=== PATIENT | female | born 1995 | race Caucasian/White ===

== ENCOUNTER 2017-01-27 17:00 | Emergency (ER) | payer SELFPAY ==
--- NOTE | 2017-01-27 17:27 | EDM.PDOC ---
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 5wks gestation with LMP of 12/19/16 who arrives from home by POV with c/o pelvic cramping, and vaginal discharge. Admits to some vaginal spotting yesterday, but not currently. Pt states her LMP of 12/19/16 was unusual for her in that it was very light and only lasted 2 days. Her period in October was her last normal period and began on 11/17/16. Denies dysuria, fever, chills, N/V, diarrhea, constipation, or any other symptoms. (Guy Jiang) Past Medical History - Past Health History Medical/Surgical History: Denies Medical/Surgical History <Guy Jiang - Last Filed: 01/27/17 18:54> Social & Family History - Family History OBGYN: Reports: Recurrent Spontaneous (mother x4) - Tobacco Use Smoking Status *Q: Never Smoker - Caffeine Use Caffeine Use: Reports: None - Alcohol Use Alcohol Use History: No - Recreational Drug Use Recreational Drug Use: No - Sexual History Sexual History: Reports: Sexually Active - Living Situation & Occupation Living situation: Reports: , with Spouse <Guy Jiang - Last Filed: 01/27/17 18:54> ED ROS GENERAL - Review of Systems Review Of Systems: ROS reveals no pertinent complaints other than HPI. <Guy Jiang - Last Filed: 01/27/17 18:54> ED EXAM - Physical Exam Exam: See Below Exam Limited By: No Limitations General Appearance: Alert, WD/WN, No Apparent Distress Throat/Mouth: Normal Inspection Head: Atraumatic, Normocephalic Neck: Normal Inspection Respiratory/Chest: No Respiratory Distress, Lungs Clear, Normal Breath Sounds, No Accessory Muscle Use, Chest Non-Tender Cardiovascular: Regular Rate, Rhythm GI/Abdominal Exam: Normal Bowel Sounds, Soft, Non-Tender, No Organomegaly, No Distention, No Abnormal Bruit, No Mass, Pelvis Stable Back Exam: Normal Inspection. No: CVA Tenderness (L), CVA Tenderness (R) Extremities: Normal Inspection, Normal Range of Motion, Non-Tender, Normal Capillary Refill, No Pedal Edema Neurological: Alert, Oriented, CN II-XII Intact, Normal Cognition, Normal Gait, No Motor/Sensory Deficits Psychiatric: Normal Affect, Normal Mood Skin Exam: Warm, Dry, Intact, Normal Color, No Rash <Guy Jiang - Last Filed: 01/27/17 18:54> Course <Guy Jiang - Last Filed: 01/27/17 18:54> <Frandy Hughes - Last Filed: 01/27/17 20:34> - Vital Signs Last Recorded V/S: Last Vital Signs Temp 36.4 C 01/27/17 17:27 Pulse 89 01/27/17 17:27 Resp 16 01/27/17 17:27 BP 108/57 L 01/27/17 17:27 Pulse Ox 100 01/27/17 17:27 - Orders/Labs/Meds Orders: Active Orders 24 hr Category Date Time Status CHLAMYDIA TRACHOMATIS/GC AMPLF Routine Lab 01/27/17 17:35 Received Labs: Laboratory Tests 01/27/17 01/27/17 01/27/17 Range/Units 17:35 17:35 17:55 WBC 7.8 (5.0-10.0) 10^3/uL RBC 4.58 (4.2-5.4) 10^6/uL Hgb 13.5 (12.0-16.0) g/dL Hct 40.8 (37.0-47.0) % MCV 89.1 (80-100) fL MCH 29.5 (27.0-34.0) pg MCHC 33.1 (33.0-35.0) g/dL Plt Count 263 (150-450) 10^3/uL Neut % (Auto) 70.4 (42.2-75.2) % Lymph % (Auto) 20.8 (20.5-50.1) % [place] % (Auto) 7.7 (2-8) % Eos % (Auto) 0.8 L (1.0-3.0) % Baso % (Auto) 0.3 (0.0-1.0) % HCG, Quant (0-25) mIU/ml Beta HCG, Quant mIU/ml Urine Color Dark yellow (YELLOW) Urine Appearance Cloudy (CLEAR) Urine pH 5.0 (5.0-9.0) Ur Specific [place] >= 1.030 (1.005-1.030) Urine Protein Negative (NEGATIVE) Urine Glucose (UA) Negative (NEGATIVE) Urine Ketones 80 H (NEGATIVE) Urine Occult Blood Negative (NEGATIVE) Urine Nitrite Negative (NEGATIVE) Urine Bilirubin Negative (NEGATIVE) Urine Urobilinogen 0.2 (0.2-1.0) mg/dL Ur Leukocyte Esterase Trace H (NEGATIVE) Urine RBC 0-5 /HPF Urine WBC 5-10 H (0-5/HPF) /HPF Ur Epithelial Cells Few /HPF Amorphous Sediment Few (0/HPF) /HPF Urine Bacteria Few (0-FEW/HPF) /HPF Urine Mucus Few H /LPF Urine Opiates Screen Negative (NEGATIVE) Ur Oxycodone Screen Negative (NEGATIVE) Urine Methadone Screen Negative (NEGATIVE) Ur Barbiturates Screen Negative (NEGATIVE) U Tricyclic Antidepress Negative (NEGATIVE) Ur Phencyclidine Scrn Negative (NEGATIVE) Ur Amphetamine Screen Negative (NEGATIVE) U Methamphetamines Scrn Negative (NEGATIVE) Urine MDMA Screen Negative (NEGATIVE) U Benzodiazepines Scrn Negative (NEGATIVE) Urine Cocaine Screen Negative (NEGATIVE) U Marijuana (THC) Screen Negative (NEGATIVE) Blood Type 01/27/17 01/27/17 Range/Units 17:55 17:55 WBC (5.0-10.0) 10^3/uL RBC (4.2-5.4) 10^6/uL Hgb (12.0-16.0) g/dL Hct (37.0-47.0) % MCV (80-100) fL MCH (27.0-34.0) pg MCHC (33.0-35.0) g/dL Plt Count (150-450) 10^3/uL Neut % (Auto) (42.2-75.2) % Lymph % (Auto) (20.5-50.1) % [place] % (Auto) (2-8) % Eos % (Auto) (1.0-3.0) % Baso % (Auto) (0.0-1.0) % HCG, Quant 729 H (0-25) mIU/ml Beta HCG, Quant < 1050 mIU/ml Urine Color (YELLOW) Urine Appearance (CLEAR) Urine pH (5.0-9.0) Ur Specific [place] (1.005-1.030) Urine Protein (NEGATIVE) Urine Glucose (UA) (NEGATIVE) Urine Ketones (NEGATIVE) Urine Occult Blood (NEGATIVE) Urine Nitrite (NEGATIVE) Urine Bilirubin (NEGATIVE) Urine Urobilinogen (0.2-1.0) mg/dL Ur Leukocyte Esterase (NEGATIVE) Urine RBC /HPF Urine WBC (0-5/HPF) /HPF Ur Epithelial Cells /HPF Amorphous Sediment (0/HPF) /HPF Urine Bacteria (0-FEW/HPF) /HPF Urine Mucus /LPF Urine Opiates Screen (NEGATIVE) Ur Oxycodone Screen (NEGATIVE) Urine Methadone Screen (NEGATIVE) Ur Barbiturates Screen (NEGATIVE) U Tricyclic Antidepress (NEGATIVE) Ur Phencyclidine Scrn (NEGATIVE) Ur Amphetamine Screen (NEGATIVE) U Methamphetamines Scrn (NEGATIVE) Urine MDMA Screen (NEGATIVE) U Benzodiazepines Scrn (NEGATIVE) Urine Cocaine Screen (NEGATIVE) U Marijuana (THC) Screen (NEGATIVE) Blood Type A POSITIVE - Re-Assessments/Exams Free Text/Narrative Re-Assessment/Exam: 01/27/17 20:29 Patient care was taken over at shift change. The patient was advised of the ultrasound results and encouraged to follow-up with a primary care provider for continued evaluation and further management. (Frandy Hughes) Departure <Guy Jiang - Last Filed: 01/27/17 18:54> - Departure Time of Disposition: 20:32 Condition: Fair <Frandy Hughes - Last Filed: 01/27/17 20:34> - Departure Disposition: Home, Self-Care 01 Clinical Impression: Qualifiers: Weeks of gestation: less than 8 weeks Qualified Code(s): Z3A.01 - Less than 8 weeks gestation of - Discharge Information Instructions: First Trimester of , [id number] Forms: ED Department Discharge Care Plan Goals: The patient was advised of the examination, lab and ultrasound results during the visit. The patient was encouraged to follow-up with a primary care provider for continued evaluation and further management. If the patient has any additional symptoms or concerns, the patient should visit her primary care facility or return to the emergency department.
[2017-01-27 17:29] VITALS: BP 108/57
== END 2017-01-27 20:37 | disposition home or self-care (01) ==
LOC: DL.ED 17:00
DX: O99.89 Other specified diseases and conditions complicating pregnancy, childbirth and the puerperium (principal); R10.2 Pelvic and perineal pain; Z3A.01 Less than 8 weeks gestation of pregnancy
CPT/HCPCS: 36415; 76801; 76817; 80305; 81001; 84702; 85025; 86900; 86901; 87210; 87491; 87591; 99284

== ENCOUNTER 2017-06-15 18:52 | Emergency (ER) | payer BC ==
[2017-06-15 19:13] VITALS: BP 112/60
--- NOTE | 2017-06-15 20:08 | EDM.PDOC ---
ED HPI GENERAL MEDICAL PROBLEM - General Chief Complaint: General Stated Complaint: NAUSEA,DIZZY,LIGHTHEADED [id number] Time Seen by Provider: 06/15/17 20:04 Source of Information: Reports: Patient History Limitations: Reports: No Limitations - History of Present Illness INITIAL COMMENTS - FREE TEXT/NARRATIVE: 2 days h/o ABRAHAM top of head and dizziness tried to see PMD but filled and told to come here. denies head congestion some throat discomfort denies F/C Headache Pain Score (Numeric/FACES): 8 - Related Data Allergies Allergy/AdvReac Type Severity Reaction Status Date / Time chlorhexidine Allergy Cannot Verified 06/15/17 19:08 Remember iodine Allergy Cannot Verified 06/15/17 19:08 Remember betadine Allergy Cannot Uncoded 05/05/17 11:25 Remember Home Meds: Home Meds Vits #93/Iron Fum/FA [ Formula Tablet] 1 each PO DAILY [History] Past Medical History - Past Health History Medical/Surgical History: Denies Medical/Surgical History HEENT History: Reports: None Cardiovascular History: Reports: None Respiratory History: Reports: None Gastrointestinal History: Reports: None Genitourinary History: Reports: None 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: Musculoskeletal History: Reports: None Neurological History: Reports: None Psychiatric History: Reports: None Endocrine/Metabolic History: Reports: None Hematologic History: Reports: None Immunologic History: Reports: None Oncologic (Cancer) History: Reports: None Dermatologic History: Reports: None - Infectious Disease History Infectious Disease History: Reports: None - Past Surgical History Head Surgeries/Procedures: Reports: None HEENT Surgical History: Reports: Tonsillectomy GI Surgical History: Reports: Appendectomy Musculoskeletal Surgical History: Reports: Other (See Below) Other Musculoskeletal Surgeries/Procedures:: ankle surgery Social & Family History - Family History Family Medical History: Noncontributory OBGYN: Reports: Recurrent Spontaneous - Tobacco Use Smoking Status *Q: Never Smoker - Caffeine Use Caffeine Use: Reports: Soda - Recreational Drug Use Recreational Drug Use: No - Sexual History Sexual History: Reports: Sexually Active - Living Situation & Occupation Living situation: Reports: , with Spouse ED ROS GENERAL - Review of Systems Review Of Systems: ROS reveals no pertinent complaints other than HPI. ED EXAM, GENERAL - Physical Exam Exam: See Below Exam Limited By: No Limitations General Appearance: Alert, WD/WN, Mild Distress, Other (discomfort) Ears: Hearing Grossly Normal Ear Exam: Bilateral Ear: TM Dull Throat/Mouth: Normal Voice, No Airway Compromise Head: Atraumatic Neck: Non-Tender, Full Range of Motion Respiratory/Chest: No Respiratory Distress Cardiovascular: Regular Rate, Rhythm GI/Abdominal: Soft, Non-Tender Neurological: Alert, Oriented, Normal Cognition, Normal Gait, No Motor/Sensory Deficits Psychiatric: Flat Affect Skin Exam: Warm, Dry, Normal Color Lymphatic: No Adenopathy Course - Vital Signs Last Recorded V/S: Last Vital Signs Temp 37.2 C 06/15/17 19:11 Pulse 106 H 06/15/17 19:11 Resp 19 06/15/17 19:11 BP 112/60 06/15/17 19:11 Pulse Ox 100 06/15/17 19:11 - Orders/Labs/Meds Orders: Active Orders 24 hr Category Date Time Status CULTURE STREP A CONFIRMATION [RM] Stat Lab 06/15/17 19:10 Results STREP SCRN A RAPID W CULT CONF [RM] Stat Lab 06/15/17 19:10 Results Meds: Medications Discontinued Medications Generic Name Dose Route Start Last Admin Trade Name Cristopher PRN Reason Stop Dose Admin Ketorolac Tromethamine 30 mg 06/15/17 20:20 Toradol IM 06/15/17 20:21 ONETIME ONE - Re-Assessments/Exams Free Text/Narrative Re-Assessment/Exam: 06/15/17 20:21 results 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 Departure - Departure Time of Disposition: 20:22 Disposition: Home, Self-Care 01 Condition: Good Clinical Impression: Flu syndrome - Discharge Information Instructions: Influenza, Adult, [id number] Forms: ED Department Discharge Additional Instructions: 1) rest as much as possible 2) drink lots of liquids 3) take tylenol as needed for pain 4) see family doctor tomorrow if not significantly better 5) recheck if there is any change or concerns - My Orders Last 24 Hours: My Active Orders 06/15/17 19:10 CULTURE STREP A CONFIRMATION [RM] Stat STREP SCRN A RAPID W CULT CONF [RM] Stat - Assessment/Plan Last 24 Hours: My Active Orders 06/15/17 19:10 CULTURE STREP A CONFIRMATION [RM] Stat STREP SCRN A RAPID W CULT CONF [RM] Stat
[2017-06-15] MEDS ORDERED: Ketorolac 30 MG/ML SDV IM ONE (20:20)
== END 2017-06-15 20:52 | disposition home or self-care (01) ==
LOC: DL.ED 18:52
DX: O99.89 Other specified diseases and conditions complicating pregnancy, childbirth and the puerperium (principal); R51 Headache; R42 Dizziness and giddiness; Z88.3 Allergy status to other anti-infective agents; Z3A.25 25 weeks gestation of pregnancy
CPT/HCPCS: 87081; 87430; 87804; 96372; 99283; J1885

== ENCOUNTER 2018-08-01 10:14 | Emergency (ER) | payer MEDICAID, OTHER ==
[2018-08-01 10:45] VITALS: BP 114/61
--- NOTE | 2018-08-01 11:03 | EDM.PDOC ---
ED HPI GENERAL MEDICAL PROBLEM - General Chief Complaint: Chest Pain Stated Complaint: CHEST PAIN [id number] Time Seen by Provider: 08/01/18 11:00 Source of Information: Reports: Patient History Limitations: Reports: No Limitations - History of Present Illness INITIAL COMMENTS - FREE TEXT/NARRATIVE: woke up with sharp pain right upper chest with sob, constant still hurts, got worried since sharon has heart problems and called her who told her to come. denies injury/URI/straining. denies BCP. 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: Musculoskeletal History: Reports: None Neurological History: Reports: None Psychiatric History: Reports: None Endocrine/Metabolic History: Reports: None Hematologic History: Reports: None Immunologic History: Reports: None Oncologic (Cancer) History: Reports: None Dermatologic History: Reports: None - Infectious Disease History Infectious Disease History: Reports: None - Past Surgical History Head Surgeries/Procedures: Reports: None HEENT Surgical History: Reports: Tonsillectomy GI Surgical History: Reports: Appendectomy Musculoskeletal Surgical History: Reports: Other (See Below) Other Musculoskeletal Surgeries/Procedures:: ankle surgery Social & Family History - Family History Family Medical History: Noncontributory OBGYN: Reports: Recurrent Spontaneous - Tobacco Use Smoking Status *Q: Never Smoker Second Hand Smoke Exposure: No - Caffeine Use Caffeine Use: Reports: Coffee - Recreational Drug Use Recreational Drug Use: No - Sexual History Sexual History: Reports: Sexually Active - Living Situation & Occupation Living situation: Reports: , with Spouse ED ROS GENERAL - Review of Systems Review Of Systems: ROS reveals no pertinent complaints other than HPI. ED EXAM, GENERAL - Physical Exam Exam: See Below Exam Limited By: No Limitations General Appearance: Alert, WD/WN, Anxious, Mild Distress Ears: Hearing Grossly Normal Throat/Mouth: Normal Voice, No Airway Compromise Head: Atraumatic Neck: Non-Tender, Full Range of Motion Respiratory/Chest: No Respiratory Distress, Lungs Clear, Normal Breath Sounds, No Accessory Muscle Use Cardiovascular: Regular Rate, Rhythm GI/Abdominal: Soft, Non-Tender Neurological: Alert, Oriented, Normal Cognition, Normal Gait, No Motor/Sensory Deficits Psychiatric: Anxious Skin Exam: Warm, Dry, Normal Color Lymphatic: No Adenopathy Course - Vital Signs Last Recorded V/S: Last Vital Signs Temp 36.5 C 08/01/18 10:41 Pulse 82 08/01/18 10:41 Resp 16 08/01/18 10:41 BP 114/61 08/01/18 10:41 Pulse Ox 99 08/01/18 10:41 - Orders/Labs/Meds Orders: Active Orders 24 hr Category Date Time Status EKG Documentation Completion [RC] STAT Care 08/01/18 10:59 Active Chest 1V Frontal [CR] Urgent Exams 08/01/18 11:58 Taken Labs: Laboratory Tests 08/01/18 08/01/18 08/01/18 Range/Units 11:06 11:06 11:06 WBC 5.4 (5.0-10.0) 10^3/uL RBC 4.87 (4.2-5.4) 10^6/uL Hgb 13.2 (12.0-16.0) g/dL Hct 40.6 (37.0-47.0) % MCV 83.4 (80-100) fL MCH 27.1 (27.0-34.0) pg MCHC 32.5 L (33.0-35.0) g/dL Plt Count 302 (150-450) 10^3/uL Neut % (Auto) 65.6 (42.2-75.2) % Lymph % (Auto) 21.2 (20.5-50.1) % [place] % (Auto) 11.0 H (2-8) % Eos % (Auto) 2.0 (1.0-3.0) % Baso % (Auto) 0.2 (0.0-1.0) % D-Dimer, Quantitative 315 (0-400) ng/mL Sodium 137 (135-145) mmol/L Potassium 3.8 (3.6-5.0) mmol/L Chloride 107 (101-111) mmol/L Carbon Dioxide 22.0 (21.0-31.0) mmol/L Anion Gap 11.8 BUN 10 (7-18) mg/dL Creatinine 0.7 (0.6-1.3) mg/dL Est Cr Clr Drug Dosing 122.59 mL/min Estimated GFR (MDRD) > 60 BUN/Creatinine Ratio 14.28 Glucose 93 (74-105) mg/dL Calcium 8.9 (8.4-10.2) mg/dl Total Bilirubin 0.7 (0.2-1.0) mg/dL AST 15 (10-42) IU/L ALT 27 (10-60) IU/L Alkaline Phosphatase 54 (42-121) IU/L Troponin I < 0.02 (0.00-0.02) ng/ml Total Protein 7.6 (6.7-8.2) g/dl Albumin 4.1 (3.2-5.5) g/dl Globulin 3.5 Albumin/Globulin Ratio 1.17 HCG, Qual Negative - Re-Assessments/Exams Free Text/Narrative Re-Assessment/Exam: 08/01/18 13:15 results discussed with pt who is feeling much better now but not 100% Departure - Departure Time of Disposition: 13:16 Disposition: Home, Self-Care 01 Condition: Good Clinical Impression: Atypical chest pain, Pleurisy Instructions: Pleurisy, [id number] Forms: ED Department Discharge Additional Instructions: 1) rest 2) heat to sore area 3) take tylenol or motrin for discomfort 4) recheck as needed - My Orders Last 24 Hours: My Active Orders 08/01/18 10:59 EKG Documentation Completion [RC] STAT 08/01/18 11:58 Chest 1V Frontal [CR] Urgent - Assessment/Plan Last 24 Hours: My Active Orders 08/01/18 10:59 EKG Documentation Completion [RC] STAT 08/01/18 11:58 Chest 1V Frontal [CR] Urgent
[2018-08-01 11:31] LABS: ANION GAP 11.8; CHLORIDE,CL 107 mmol/L (101-111); SODIUM,NA 137 mmol/L (135-145)
== END 2018-08-01 13:20 | disposition home or self-care (01) ==
LOC: DL.ED 10:14
DX: R09.1 Pleurisy (principal); R07.89 Other chest pain; Z88.8 Allergy status to other drugs, medicaments and biological substances
CPT/HCPCS: 36415; 71045; 80053; 84484; 84703; 85025; 85379; 93005; 99285-25

== ENCOUNTER → 2018-10-08 | Outpatient (CLI) | payer OTHER ==
--- NOTE | 2018-10-08 13:29 | US ---
Clinical history: 22-year-old female with postprandial RUQ pain and "positive" Treadwell's sign. Interpretation: Gallbladder clearly demonstrated in the right upper quadrant, beneath the liver margin, is normal size and anatomic configuration with uniformly thin wall. 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 Homogeneous normal sonodensity of the liver without sign discrete intrahepatic cystic or solid mass lesion and no abnormal dilatation of the intra or extrahepatic biliary ducts (common bile duct measures 4 mm diameter). Pancreas normal size and anatomic configuration. No pancreatic mass, major pancreatic duct dilatation or ascites. Right kidney normal. CONCLUSION: Negative gallbladder sonogram.
== END ==
LOC: DL.US 09:08
PROVIDERS: ATTEND Family Medicine
DX: R10.11 Right upper quadrant pain (principal)
CPT/HCPCS: 76705

== ENCOUNTER 2019-07-05 00:12 | Inpatient (IN) | payer OTHER ==
[2019-07-05] MEDS ORDERED: Ondansetron 4 MG/2 ML SDV IVPUSH PRN (00:25)
[2019-07-05] MEDS ORDERED: Sodium Chloride 0.9% 10 ML Syringe FLUSH PRN (00:25)
[2019-07-05] MEDS ORDERED: Misoprostol 400 MCG (4 X 100 MCG TAB) RECTAL PRN (00:25)
[2019-07-05] MEDS ORDERED: Tranexamic Acid 1,000 MG in Sodium Chloride 0.9% 100 ML IV PRN (00:25)
[2019-07-05] MEDS ORDERED: fentaNYL 100 MCG/2 ML SDV IVPUSH PRN (00:25)
[2019-07-05] MEDS ORDERED: Lactated Ringers 1,000 ML IV ONE (00:25)
[2019-07-05] MEDS ORDERED: Calcium Carbonate 500 MG Tab.Chew PO PRN ×2 (00:25→00:45)
[2019-07-05] MEDS ORDERED: Carboprost Tromethamine 250 MCG/1 ML Amp IM PRN (00:25)
[2019-07-05] MEDS ORDERED: Butorphanol 2 MG/ML SDV IVPUSH PRN ×2 (00:25)
[2019-07-05] MEDS ORDERED: Methylergonovine 0.2 MG/1 ML Amp IM PRN (00:25)
[2019-07-05] MEDS ORDERED: Lidocaine 1% 30 ML SDV INJECT PRN (00:25)
[2019-07-05] MEDS ORDERED: Oxytocin/Normal Saline 30 UNIT/500 ML BAG IV SCH (00:30)
--- NOTE | 2019-07-05 00:38 | PCM.LDHP ---
L&D History of Present Illness - General Date of Service: 07/05/19 Admit Problem/Dx: Patient Status Order with Admit Dx/Problem 07/05/19 00:25 Patient Status [ADT] Routine Admission Diagnosis/Problem Admission Diagnosis/Problem care in third trimester Source of Information: Patient History Limitations: Reports: No Limitations - History of Present Illness Introduction:: 23-year-old at 36w1d presents for IOL for cholestasis of . Patient was seen in clinic earlier today for itching. She has had itching since mid-March. LFTs and bile acids were normal in March and April. Patient developed PUPPs in May and was treated with topical then oral steroids which did improve her symptoms. Over the past week, however, the itching has gotten worse. This started waking her from sleep over the weekend. Bile acids and LFTs were obtained in the clinic today. LFTs (AST,ALT and alkaline phosphatase) were all moderately elevated from baseline. Bile acid levels will not be available for a couple of days. Due the concern for cholestasis, I reviewed the case with one of my partners, and she and I agreed that delivery was the best option as cholestasis of significantly increases the risk of stillbirth. As patient is 36w1d, I did advise patient that it was safe to deliver her in [place] but baby would have an increased risk of needing transfer to NICU, although this was not a guarantee. I did offer her the option of transfer to [place]. Patient discussed the options with her , and they elected to proceed with delivery here. Patient has been feeling well except for itching. Baby has been active. Occasional [place] contractions. No vaginal bleeding or leaking of fluid. No new headaches or vision changes. - Related Data Allergies/Adverse Reactions: Allergies Allergy/AdvReac Type Severity Reaction Status Date / Time chlorhexidine Allergy Cannot Verified 07/05/19 00:41 Remember iodine Allergy Cannot Verified 07/05/19 00:41 Remember betadine Allergy Cannot Uncoded 06/14/19 19:26 Remember Home Medications: Home Meds Acetaminophen [Tylenol] 650 mg PO Q4HR PRN 03/20/19 [History] Vits #93/Iron Fum/FA [ Formula Tablet] 1 tab PO DAILY 03/20/19 [History] Past Medical History - Past Health History Medical/Surgical History: Denies Medical/Surgical History HEENT History: Reports: None Cardiovascular History: Reports: None Respiratory History: Reports: None Gastrointestinal History: Reports: None Genitourinary History: Reports: None [employer] History: Reports: Musculoskeletal History: Reports: None Neurological History: Reports: None Psychiatric History: Reports: None Endocrine/Metabolic History: Reports: None Hematologic History: Reports: None Immunologic History: Reports: None Oncologic (Cancer) History: Reports: None Dermatologic History: Reports: None - Infectious Disease History Infectious Disease History: Reports: None - Past Surgical History Head Surgeries/Procedures: Reports: None HEENT Surgical History: Reports: Tonsillectomy GI Surgical History: Reports: Appendectomy Musculoskeletal Surgical History: Reports: Other (See Below) Other Musculoskeletal Surgeries/Procedures:: ankle surgery Social & Family History - Family History Family Medical History: Noncontributory OBGYN: Reports: Recurrent Spontaneous - Caffeine Use Caffeine Use: Reports: Coffee - Sexual History Sexual History: Reports: Sexually Active - Living Situation & Occupation Living situation: Reports: , with Spouse H&P Review of Systems - Review of Systems: Review Of Systems: See Below General: Reports: No Symptoms HEENT: Reports: No Symptoms Pulmonary: Reports: No Symptoms Cardiovascular: Reports: No Symptoms Gastrointestinal: Reports: Other (Heartburn) Genitourinary: Reports: No Symptoms Musculoskeletal: Reports: No Symptoms Skin: Reports: No Symptoms, Pruritis Psychiatric: Reports: No Symptoms Neurological: Reports: No Symptoms Hematologic/Lymphatic: Reports: No Symptoms Immunologic: Reports: No Symptoms L&D Exam - Exam Exam: See Below - OB Specific Contraction Intensity: Irritability Movement: Active Heart Tones: Present Heart Tones per Min: 135 Heart Rate (FHR) Variability: Moderate (6-25 bmp) Presentation: Vertex - Coburn Score Coburn Score Cervix Position: Posterior Coburn Score Consistency: Soft Coburn Score Effacement: 31-50% Coburn Score Dilation: 1-2 cm Coburn Score Infant's Station: -2 Coburn Score Total: 5 - Exam General: Alert, Oriented HEENT: Conjunctiva Clear, Posterior Pharynx Clear Lungs: Clear to Auscultation, Normal Respiratory Effort Cardiovascular: Regular Rate, Regular Rhythm. No: Systolic Murmur, Diastolic Murmur Extremities: Pedal Edema (Trace) Skin: Warm, Dry, Intact - Patient Data Result Diagrams: 07/05/19 00:47 - Problem List (1) care in third trimester SNOMED Code(s): 017307611, 84486217, 28832805, 641511550, 542519011 ICD Code: Z34.93 - ENCNTR FOR SUPRVSN OF NORMAL PREG, UNSP, THIRD TRIMESTER Status: Acute Current Visit: Yes (2) Cholestasis during in third trimester SNOMED Code(s): 501422258 ICD Code: O26.613 - LIVER AND BILIARY TRACT DISORD IN , THIRD TRIMESTER; K83.1 - OBSTRUCTION OF BILE DUCT Status: Acute Current Visit: Yes Problem List Initiated/Reviewed/Updated: Yes Orders Last 24hrs: Active Orders 24 hr Category Date Time Status Patient Status [ADT] Routine ADT 07/05/19 00:25 Ordered Communication Order [RC] ASDIRECTED Care 07/05/19 00:25 Ordered Communication Order [RC] ASDIRECTED Care 07/05/19 00:28 Ordered Communication Order [RC] ASDIRECTED Care 07/05/19 00:28 Ordered Communication Order [RC] ASDIRECTED Care 07/05/19 00:28 Ordered Heart Tones [RC] PER UNIT ROUTINE Care 07/05/19 00:25 Ordered Monitoring [RC] PER UNIT ROUTINE Care 07/05/19 00:28 Ordered Nitrous Oxide Delivery [RC] ASDIRECTED Care 07/05/19 00:27 Ordered Notify Provider Vital Signs OB [RC] ASDIRECTED Care 07/05/19 00:25 Ordered Notify Provider [RC] PRN Care 07/05/19 00:25 Ordered Notify Provider [RC] PRN Care 07/05/19 00:28 Ordered Notify Provider [RC] PRN Care 07/05/19 00:28 Ordered Notify Provider [RC] STAT Care 07/05/19 00:28 Ordered OB Discontinue Nitrous Oxide [RC] ASDIRECTED Care 07/05/19 00:27 Ordered POC Labs [RC] ASDIRECTED Care 07/05/19 00:25 Ordered Pump Management, Intrathecal [RC] ASDIRECTED Care 07/05/19 00:25 Ordered Up ad Елена [RC] ASDIRECTED Care 07/05/19 00:25 Ordered Vaginal Exam [RC] PRN Care 07/05/19 00:28 Ordered Vital Signs [RC] PER UNIT ROUTINE Care 07/05/19 00:25 Ordered Regular Diet [DIET] Diet 07/05/19 Breakfast Ordered CBC W/O DIFF,HEMOGRAM [HEME] Routine Lab 07/05/19 00:25 Ordered Acetaminophen [Tylenol] Med 07/05/19 00:25 Ordered 650 mg PO Q4H PRN Butorphanol [Stadol] Med 07/05/19 00:25 Ordered 0.5 mg IVPUSH Q3H PRN Butorphanol [Stadol] Med 07/05/19 00:25 Ordered 1 mg IVPUSH Q3H PRN Calcium Carbonate [Tums] Med 07/05/19 00:25 Ordered 1,000 mg PO Q2HR PRN Carboprost Tromethamine [Hemabate DS] Med 07/05/19 00:25 Ordered 250 mcg IM ASDIRECTED PRN Lactated Ringers @ 125 MLS/HR(1000ml) Med 07/05/19 00:30 Ordered Lactated Ringers [Ringers, Lactated] 1,000 ml IV ASDIRECTED Lactated Ringers [Ringers, Lactated] 1,000 ml Med 07/05/19 00:25 Ordered IV BOLUS Lidocaine 1% [Xylocaine-MPF 1%] Med 07/05/19 00:25 Ordered 30 ml INJECT ASDIRECTED PRN Methylergonovine [Methergine] Med 07/05/19 00:25 Ordered 0.2 mg IM ASDIRECTED PRN Ondansetron [Zofran] Med 07/05/19 00:25 Ordered 4 mg IVPUSH Q4H PRN Oxytocin 30 Units in NS @ 2 MUNITS/MIN(500ml) Med 07/05/19 00:30 Ordered Oxytocin/Normal Saline [Pitocin in NS 30 UNIT/500 ML] 30 unit in 500 ml IV TITRATE Sodium Chloride 0.9% [Saline Flush] Med 07/05/19 00:25 Ordered 10 ml FLUSH ASDIRECTED PRN Tranexamic Acid [Cyklokapron] 1,000 mg Med 07/05/19 00:25 Ordered Sodium Chloride 0.9% [Normal Saline] 100 ml IV ONETIME fentaNYL [Sublimaze] Med 07/05/19 00:25 Ordered 100 mcg IVPUSH Q1H PRN miSOPROStoL [Cytotec] Med 07/05/19 00:28 Ordered 25 mcg VAG Q4H PRN miSOPROStoL [Cytotec] Med 07/05/19 00:25 Ordered 800 mcg RECTAL ASDIRECTED PRN Saline Lock Insert [OM.PC] Routine Oth 07/05/19 00:25 Ordered Resuscitation Status Routine Resus Stat 07/05/19 00:25 Ordered Medication Orders Acetaminophen (Tylenol) 650 mg PO Q4H PRN PRN Reason: Pain (Mild 1-3) and fever Butorphanol Tartrate (Stadol) 0.5 mg IVPUSH Q3H PRN PRN Reason: Pain Butorphanol Tartrate (Stadol) 1 mg IVPUSH Q3H PRN PRN Reason: Pain Calcium Carbonate/Glycine (Tums) 1,000 mg PO Q2HR PRN PRN Reason: Indigestion Carboprost Tromethamine (Hemabate Ds) 250 mcg IM ASDIRECTED PRN PRN Reason: HEMORRHAGE Fentanyl (Sublimaze) 100 mcg IVPUSH Q1H PRN PRN Reason: Pain (moderate 4-6) Lactated Ringer's (Ringers, Lactated) 1,000 mls @ 999 mls/hr IV BOLUS ONE Stop: 07/05/19 01:25 Lactated Ringer's (Ringers, Lactated) 1,000 mls @ 125 mls/hr IV ASDIRECTED JOSLYN Lidocaine HCl (Xylocaine-Mpf 1%) 30 ml INJECT ASDIRECTED PRN PRN Reason: Perineal Repair Methylergonovine Maleate (Methergine) 0.2 mg IM ASDIRECTED PRN PRN Reason: Hemorrhage Misoprostol (Cytotec) 800 mcg RECTAL ASDIRECTED PRN PRN Reason: Hemorrhage Ondansetron HCl (Zofran) 4 mg IVPUSH Q4H PRN PRN Reason: Nausea/Vomiting Assessment/Plan Comment:: 23-year-old at 36w1d presenting for IOL for cholestasis of 1. Initiate routine intrapartum orders 2. Cytotec for cervical ripening 3. Plan for AROM and pitocin for augmentation as indicated 4. Patient uncertain if desires intrathecal 5. Expectant management. Anticipate Julia Cruz MD
[2019-07-05] MEDS: Misoprostol 25 MCG (1/4 of 100 MCG) Tab VAG PRN ×3 (01:02→09:59)
[2019-07-05] MEDS ORDERED: hydrOXYzine HCl 25 MG Tab PO ONE (01:05)
[2019-07-05] MEDS ORDERED: hydrOXYzine HCl 25 MG Tab PO PRN (08:42)
[2019-07-05] MEDS: Lactated Ringers 1,000 ML IV SCH ×2 (13:00→14:25)
[2019-07-05] MEDS ORDERED: EPINEPHrine 1 MG/1 ML Amp ONE (13:31)
[2019-07-05] MEDS ORDERED: fentaNYL 100 MCG/2 ML SDV ONE (13:31)
--- NOTE | 2019-07-05 14:22 | PCM.PRNOTE ---
- Free Text/Narrative Note: Requested to provide analgesia to full term patient in severe pain. Upon entering the room, patient is sitting on edge of bed complaining of severe abdominal/pelvic pain and discomfort. Procedure was discussed with patient including adverse outcomes and expectations. Pt consented to analgesia, SAB/ IT. Pt placed into a proper sitting position. Landmarks for SAB/IT were identified and marked. Hands were washed and appropriate PPE was applied. Back was prepped with betadine x3. A sterile, transparent, fenestrated drape was applied. Excess betadine was removed. Using 3 mL of a 1% lidocaine solution , a skin wheel was placed at the L2/L3 interspace. A 24 ga (4 inch) [place] spinal needle was inserted until positive for CSF. Negative for heme or paresthesias. Injected fentanyl 20 mcg, sufentanil 20 mcg, and 7.5 mg of a 0.75 % bupivacaine solution with an epi wash. Pt was placed left lateral position for approximately 20 minutes. There were zero complications or adverse outcomes. Will continue to monitor. Procedure Date & Time: 07/05/19 [id number]
[2019-07-05] MEDS ORDERED: Benzocaine/Menthol 20%-0.5% Spray 56 GM Canister TOP PRN (18:42)
[2019-07-05] MEDS ORDERED: Simethicone 80 MG Tab.Chew PO PRN (18:42)
[2019-07-05] MEDS ORDERED: Oxytocin 10 Units/1 ML SDV IM PRN (18:42)
--- NOTE | 2019-07-05 19:03 | PCM.DEL ---
L & D Note - General Info Date of Service: 07/05/19 Mother's Due Date: 08/01/19 - Delivery Note Labor: Augmented by ARM, Augmented by Oxytocin Cervical Ripening Method: Misoprostil Delivery Outcome: Livebirth Infant Delivery Method: Spontaneous Vaginal Delivery-Single Presentation: Vertex Nuchal Cord: None Anesthesia Type: Intrathecal, Nitrous Oxide Amniotic Fluid Description: Clear Episiotomy Type: None Laceration: None Placenta: Intact, Spontaneous Cord: 3 Vessels Estimated Blood Loss: 250 Resuscitation Needed: Yes [place]: Suctioned, Bulb Syringe, Stimulated, Warmed, [place] Used, Warmer Used Provider: Julia Cruz Score 1 min: 5 Score 5 min: 6 Score 10 min: 8 Delivery Comments (Free Text/Narrative):: 23-year-old presented to L&D at 0000 today for IOL at 36w1d due to cholestasis of . Patient received 3 doses of Cytotec. After the 3rd dose, patient started to have regular contractions. She was checked at 1245 and was noted to be 4 cm. AROM was performed for a moderate amount of clear fluid. Patient did receive an intrathecal for pain control around 1400. She also used nitrous oxide intermittently for pain control. Pitocin was started for augmentation, very slowly. Patient progressed to complete dilation. Patient pushed for about 15 minutes and delivered a viable male with Apgars of 5/6/8 at 1/5/10 minutes. Infant was initially was placed on mother chest. Cord was allowed to finish pulsating, the cord was clamped x2 and patient's cut the cord. Baby was taken to the warmer. Cord blood was collected. Placenta delivered 3 minutes later and was noted to be intact. Pitocin was started, and uterus was noted to be firm. Perineum was inspected and was noted to be intact. Bleeding was appropriate. Patient tolerated the procedure well, and there were no immediate complications. Induction Criteria - Coburn Score Coburn Score Dilation: 1-2 cm Coburn Score Effacement: 60-70% Coburn Score Infant's Station: -2 Coburn Score Consistency: Soft Coburn Score Cervix Position: Posterior Coburn Score Total: 6 Coburn Score Presenting Part: Reports: Cephalic - Induction Gestational Age >/= 39 wks: No Medical Indication: Cholestasis in Estimated Pelvis: Reports: Adequate Reassuring Monitoring Strip: Yes Absence of Tachy Systole: No - General Info Date of Service: 07/05/19 - Patient Data Vitals - Most Recent: Last Vital Signs Temp 36.4 C 07/05/19 12:00 Pulse 90 07/05/19 12:00 Resp 18 07/05/19 12:00 BP 111/62 07/05/19 12:00 Pulse Ox Weight - Most Recent: 88.451 kg I&O - Last 24 Hours: Intake & Output 07/05/19 07/05/19 07/05/19 06:59 14:59 22:59 Intake Total 1000 Balance 1000 Lab Results Last 24 Hours: Laboratory Results - last 24 hr 07/05/19 Range/Units 00:47 WBC 10.3 H (5.0-10.0) 10^3/uL RBC 3.99 L (4.2-5.4) 10^6/uL Hgb 11.3 L D (12.0-16.0) g/dL Hct 34.8 L (37.0-47.0) % MCV 87.2 D (80-100) fL MCH 28.3 (27.0-34.0) pg MCHC 32.5 L (33.0-35.0) g/dL Plt Count 268 (150-450) 10^3/uL Med Orders - Current: Current Medications Acetaminophen (Tylenol) 650 mg PO Q4H PRN PRN Reason: Pain (Mild 1-3) and fever Benzocaine/Menthol (Dermoplast Pain Relief [place]) 0 gm TOP Q4H PRN PRN Reason: Perineal comfort measures Calcium Carbonate/Glycine (Tums) 1,000 mg PO Q2H PRN PRN Reason: Indigestion Carboprost Tromethamine (Hemabate Ds) 250 mcg IM ASDIRECTED PRN PRN Reason: HEMORRHAGE Docusate Sodium (Colace) 100 mg PO BID PRN PRN Reason: Constipation Hydroxyzine HCl (Atarax) 50 mg PO TID PRN PRN Reason: Anxiety Lactated Ringer's (Ringers, Lactated) 1,000 mls @ 125 mls/hr IV ASDIRECTED JOSLYN Last Admin: 07/05/19 14:25 Dose: 125 mls/hr Tranexamic Acid 1,000 mg/ (Sodium Chloride) 110 mls @ 660 mls/hr IV ONETIME PRN PRN Reason: Bleeding Oxytocin/Sodium Chloride (Pitocin In Ns 30 Unit/500 Ml) 30 unit in 500 mls @ 2 mls/hr IV TITRATE JOSLYN; Protocol Last Titration: 07/05/19 16:03 Dose: 4 munits/min, 4 mls/hr Ibuprofen (Motrin) 800 mg PO Q8H PRN PRN Reason: Mild Pain or Fever Methylergonovine Maleate (Methergine) 0.2 mg IM ASDIRECTED PRN PRN Reason: Hemorrhage Misoprostol (Cytotec) 800 mcg RECTAL ASDIRECTED PRN PRN Reason: Hemorrhage Ondansetron HCl (Zofran) 4 mg IVPUSH Q4H PRN PRN Reason: Nausea/Vomiting Last Admin: 07/05/19 13:50 Dose: 4 mg Oxytocin (Pitocin) 10 unit IM ONETIME PRN PRN Reason: Bleeding Prenat Multivit/Diagonal/Iron/Folic Ac ( Plus Iron) 1 each PO DAILY JOSLYN Simethicone (Simethicone) 80 mg PO Q4H PRN PRN Reason: Gas Sodium Chloride (Saline Flush) 10 ml FLUSH ASDIRECTED PRN PRN Reason: Keep Vein Open Last Admin: 07/05/19 13:00 Dose: 10 ml Discontinued Medications Butorphanol Tartrate (Stadol) 0.5 mg IVPUSH Q3H PRN PRN Reason: Pain Butorphanol Tartrate (Stadol) 1 mg IVPUSH Q3H PRN PRN Reason: Pain Calcium Carbonate/Glycine (Tums) 1,000 mg PO Q2HR PRN PRN Reason: Indigestion Epinephrine HCl (Adrenalin) Confirm Administered Dose 1 mg .ROUTE .STK-MED ONE Stop: 07/05/19 13:32 Last Admin: 07/05/19 15:03 Dose: Not Given Fentanyl (Sublimaze) 100 mcg IVPUSH Q1H PRN PRN Reason: Pain (moderate 4-6) Fentanyl (Sublimaze) Confirm Administered Dose 100 mcg .ROUTE .STK-MED ONE Stop: 07/05/19 13:32 Last Admin: 07/05/19 15:03 Dose: Not Given Hydroxyzine HCl (Atarax) 100 mg PO ONETIME ONE Stop: 07/05/19 01:06 Last Admin: 07/05/19 01:17 Dose: 100 mg Lactated Ringer's (Ringers, Lactated) 1,000 mls @ 999 mls/hr IV BOLUS ONE Stop: 07/05/19 01:25 Lidocaine HCl (Xylocaine-Mpf 1%) 30 ml INJECT ASDIRECTED PRN PRN Reason: Perineal Repair Misoprostol (Cytotec) 25 mcg VAG Q4H PRN PRN Reason: cervical ripening Last Admin: 07/05/19 09:59 Dose: 25 mcg Sufentanil Citrate (Sufenta) Confirm Administered Dose 50 mcg .ROUTE .STK-MED ONE Stop: 07/05/19 13:33 Last Admin: 07/05/19 15:03 Dose: Not Given - Problem List & Annotations (1) care in third trimester SNOMED Code(s): 972077824, 63056270, 32187590, 652168311, 046864001 Code(s): Z34.93 - ENCNTR FOR SUPRVSN OF NORMAL PREG, UNSP, THIRD TRIMESTER Status: Acute Current Visit: Yes (2) Cholestasis during in third trimester SNOMED Code(s): 578571557 Code(s): O26.613 - LIVER AND BILIARY TRACT DISORD IN , THIRD TRIMESTER; K83.1 - OBSTRUCTION OF BILE DUCT Status: Acute Current Visit: Yes (3) (normal spontaneous vaginal delivery) SNOMED Code(s): 83706748, 571642601 Code(s): O80 - ENCOUNTER FOR FULL-TERM UNCOMPLICATED DELIVERY Status: Acute Current Visit: Yes - Problem List Review Problem List Initiated/Reviewed/Updated: Yes - My Orders Last 24 Hours: My Active Orders 07/05/19 00:25 Patient Status [ADT] Routine Communication Order [RC] ASDIRECTED Notify Provider Vital Signs OB [RC] ASDIRECTED POC Labs [RC] ASDIRECTED Up ad Елена [RC] ASDIRECTED Vital Signs [RC] 08,20 Acetaminophen [Tylenol] 650 mg PO Q4H PRN Carboprost Tromethamine [Hemabate DS] 250 mcg IM ASDIRECTED PRN Methylergonovine [Methergine] 0.2 mg IM ASDIRECTED PRN Ondansetron [Zofran] 4 mg IVPUSH Q4H PRN Sodium Chloride 0.9% [Saline Flush] 10 ml FLUSH ASDIRECTED PRN Tranexamic Acid [Cyklokapron] 1,000 mg Sodium Chloride 0.9% [Normal Saline] 100 ml IV ONETIME miSOPROStoL [Cytotec] 800 mcg RECTAL ASDIRECTED PRN Saline Lock Insert [OM.PC] Routine Resuscitation Status Routine 07/05/19 00:27 OB Discontinue Nitrous Oxide [RC] ASDIRECTED 07/05/19 00:28 Communication Order [RC] ASDIRECTED Communication Order [RC] ASDIRECTED 07/05/19 00:30 Lactated Ringers [Ringers, Lactated] 1,000 ml IV ASDIRECTED Oxytocin/Normal Saline [Pitocin in NS 30 UNIT/500 ML] 30 unit in 500 ml IV TITRATE 07/05/19 00:45 Calcium Carbonate [Tums] 1,000 mg PO Q2H PRN 07/05/19 08:42 hydrOXYzine HCL [Atarax] 50 mg PO TID PRN 07/05/19 18:42 Vital Signs [RC] PFP Consult to [place] [CONS] Routine Benzocaine/Menthol [Dermoplast Pain Relief [place]] See Dose Instructions TOP Q4H PRN Docusate Sodium [Colace] 100 mg PO BID PRN Ibuprofen [Motrin] 800 mg PO Q8H PRN Oxytocin [Pitocin] 10 unit IM ONETIME PRN Simethicone 80 mg PO Q4H PRN Assess Lochia [WOMSER] Per Unit Routine Assess Uterine Involution [WOMSER] Per Unit Routine Breast Pump [WOMSER] Per Unit Routine Ice Therapy [OM.PC] Per Unit Routine Perineal Care [OM.PC] Per Unit Routine Sitz Bath [OM.PC] Per Unit Routine 07/05/19 Breakfast Regular Diet [DIET] 07/06/19 09:00 Vit with Ca/FA/Iron [ Plus Iron] 1 each PO DAILY - Assessment Assessment:: 23-year-old, now , status post- 36w1d - Plan Plan:: 1. Initiate routine orders 2. Mother plans to attempt 3. Continue vistaril for itching/anxiety 4. Anticipate discharge 07/07/2019 Julia Cruz MD
[2019-07-05] MEDS: Ibuprofen 800 MG Tab PO PRN (22:54)
[2019-07-06] MEDS: Acetaminophen 325 MG Tab PO PRN ×3 (03:31→20:39)
[2019-07-06] MEDS: Ibuprofen 800 MG Tab PO PRN ×2 (06:11→20:37)
[2019-07-06] MEDS: Prenatal Multivitamin with Calcium/Folic Acid/Iron Tab PO SCH (09:52)
[2019-07-06] MEDS: Docusate Sodium 100 MG Cap PO PRN ×2 (09:52→20:39)
[2019-07-07] MEDS: Ibuprofen 800 MG Tab PO PRN (04:32)
[2019-07-07] MEDS: Acetaminophen 325 MG Tab PO PRN (04:32)
[2019-07-07] MEDS ORDERED: fentaNYL 100 MCG/2 ML SDV ITHECAL ONE (11:58)
[2019-07-07 17:27] VITALS: BP 120/80; PULSE 88
[2019-07-07] MEDS: Prenatal Multivitamin with Calcium/Folic Acid/Iron Tab PO SCH (17:27)
--- NOTE | 2019-07-07 23:41 | PCM.PNPP ---
- General Info Date of Service: 07/06/19 Subjective Update: PPD#1 s/p . Patient is doing well. Complains of some abdominal cramping and overall soreness but Tylenol and ibuprofen are helping. Bleeding has decreased. Patient reports slight increase in pedal edema. Tolerating a general diet. Ambulating without difficulty. Urinating without significant discomfort. Passing gas. No dizziness, lightheadedness, fever or chills. is going fairly well. Baby is struggling to latch on one side. Has done some finger feeds as well. Patient does have Specta pump at home. No concerns per patient or per nursing staff. Functional Status: Reports: Pain Controlled, Tolerating Diet, Ambulating, Urinating. Denies: New Symptoms - Review of Systems General: Reports: No Symptoms HEENT: Reports: No Symptoms Pulmonary: Reports: No Symptoms Cardiovascular: Reports: No Symptoms Gastrointestinal: Reports: No Symptoms Genitourinary: Reports: No Symptoms Musculoskeletal: Reports: Back Pain Skin: Reports: Pruritis Neurological: Reports: No Symptoms Psychiatric: Reports: No Symptoms - General Info Date of Service: 07/06/19 - Patient Data Vital Signs - Most Recent: Last Vital Signs Temp 36.9 C 07/07/19 08:00 Pulse 88 07/07/19 08:00 Resp 16 07/07/19 08:00 BP 120/80 07/07/19 08:00 Pulse Ox 98 07/07/19 08:00 Weight - Most Recent: 88.451 kg Med Orders - Current: Current Medications Discontinued Medications Acetaminophen (Tylenol) 650 mg PO Q4H PRN PRN Reason: Pain (Mild 1-3) and fever Last Admin: 07/07/19 04:32 Dose: 650 mg Benzocaine/Menthol (Dermoplast Pain Relief [place]) 0 gm TOP Q4H PRN PRN Reason: Perineal comfort measures Butorphanol Tartrate (Stadol) 0.5 mg IVPUSH Q3H PRN PRN Reason: Pain Butorphanol Tartrate (Stadol) 1 mg IVPUSH Q3H PRN PRN Reason: Pain Calcium Carbonate/Glycine (Tums) 1,000 mg PO Q2HR PRN PRN Reason: Indigestion Calcium Carbonate/Glycine (Tums) 1,000 mg PO Q2H PRN PRN Reason: Indigestion Carboprost Tromethamine (Hemabate Ds) 250 mcg IM ASDIRECTED PRN PRN Reason: HEMORRHAGE Docusate Sodium (Colace) 100 mg PO BID PRN PRN Reason: Constipation Last Admin: 07/06/19 20:39 Dose: 100 mg Epinephrine HCl (Adrenalin) Confirm Administered Dose 1 mg .ROUTE .STK-MED ONE Stop: 07/05/19 13:32 Last Admin: 07/05/19 15:03 Dose: Not Given Fentanyl (Sublimaze) 100 mcg IVPUSH Q1H PRN PRN Reason: Pain (moderate 4-6) Fentanyl (Sublimaze) Confirm Administered Dose 100 mcg .ROUTE .STK-MED ONE Stop: 07/05/19 13:32 Last Admin: 07/05/19 15:03 Dose: Not Given Fentanyl (Sublimaze) 20 mcg ITHECAL .STK-MED ONE Stop: 07/07/19 11:59 Hydroxyzine HCl (Atarax) 100 mg PO ONETIME ONE Stop: 07/05/19 01:06 Last Admin: 07/05/19 01:17 Dose: 100 mg Hydroxyzine HCl (Atarax) 50 mg PO TID PRN PRN Reason: Anxiety Last Admin: 07/05/19 22:54 Dose: 50 mg Lactated Ringer's (Ringers, Lactated) 1,000 mls @ 999 mls/hr IV BOLUS ONE Stop: 07/05/19 01:25 Last Admin: 07/06/19 03:34 Dose: Not Given Lactated Ringer's (Ringers, Lactated) 1,000 mls @ 125 mls/hr IV ASDIRECTED JOSLYN Last Admin: 07/05/19 14:25 Dose: 125 mls/hr Tranexamic Acid 1,000 mg/ (Sodium Chloride) 110 mls @ 660 mls/hr IV ONETIME PRN PRN Reason: Bleeding Oxytocin/Sodium Chloride (Pitocin In Ns 30 Unit/500 Ml) 30 unit in 500 mls @ 2 mls/hr IV TITRATE JOSLYN; Protocol Last Titration: 07/05/19 20:55 Dose: 0 munits/min, 0 mls/hr Ibuprofen (Motrin) 800 mg PO Q8H PRN PRN Reason: Mild Pain or Fever Last Admin: 07/07/19 04:32 Dose: 800 mg Lidocaine HCl (Xylocaine-Mpf 1%) 30 ml INJECT ASDIRECTED PRN PRN Reason: Perineal Repair Methylergonovine Maleate (Methergine) 0.2 mg IM ASDIRECTED PRN PRN Reason: Hemorrhage Misoprostol (Cytotec) 800 mcg RECTAL ASDIRECTED PRN PRN Reason: Hemorrhage Misoprostol (Cytotec) 25 mcg VAG Q4H PRN PRN Reason: cervical ripening Last Admin: 07/05/19 09:59 Dose: 25 mcg Ondansetron HCl (Zofran) 4 mg IVPUSH Q4H PRN PRN Reason: Nausea/Vomiting Last Admin: 07/05/19 13:50 Dose: 4 mg Oxytocin (Pitocin) 10 unit IM ONETIME PRN PRN Reason: Bleeding Prenat Multivit/Cedro/Iron/Folic Ac ( Plus Iron) 1 each PO DAILY JOSLYN Last Admin: 07/07/19 17:27 Dose: Not Given Simethicone (Simethicone) 80 mg PO Q4H PRN PRN Reason: Gas Sodium Chloride (Saline Flush) 10 ml FLUSH ASDIRECTED PRN PRN Reason: Keep Vein Open Last Admin: 07/05/19 13:00 Dose: 10 ml Sufentanil Citrate (Sufenta) Confirm Administered Dose 50 mcg .ROUTE .STK-MED ONE Stop: 07/05/19 13:33 Last Admin: 07/05/19 15:03 Dose: Not Given Sufentanil Citrate (Sufenta) 20 mcg ITHECAL .STK-MED ONE Stop: 07/07/19 11:59 - Infant Interaction Infant Disposition, : [place] in Room with Family Interaction: Holding Infant Feeding: Attempted ; Nursed Fair/Poor, Continues to Breastfeed, Difficulty with Latch-on Support Person: - Recovery Exam Fundal Tone: Firm Fundal Level: 1 Fingerbreadths Below Umbilicus Fundal Placement: Midline Lochia Amount: Small Lochia Color: Rubra/Red Perineum Description: Intact, Minimal Bruising/Swelling Episiotomy/Laceration: None Bladder Status: Voiding Urinary Elimination: Voided - Exam General: Alert, Oriented HEENT: Pupils Equal Lungs: Clear to Auscultation, Normal Respiratory Effort Cardiovascular: Regular Rate, Regular Rhythm, No Murmurs Extremities: Pedal Edema (Trace bilaterally) Skin: Warm, Dry, Intact - Problem List & Annotations (1) care in third trimester SNOMED Code(s): 716865527, 03896230, 25016336, 971871517, 641524438 Code(s): Z34.93 - ENCNTR FOR SUPRVSN OF NORMAL PREG, UNSP, THIRD TRIMESTER Status: Acute (2) Cholestasis during in third trimester SNOMED Code(s): 294834035 Code(s): O26.613 - LIVER AND BILIARY TRACT DISORD IN , THIRD TRIMESTER; K83.1 - OBSTRUCTION OF BILE DUCT Status: Acute (3) (normal spontaneous vaginal delivery) SNOMED Code(s): 02100107, 663618991 Code(s): O80 - ENCOUNTER FOR FULL-TERM UNCOMPLICATED DELIVERY Status: Acute - Problem List Review Problem List Initiated/Reviewed/Updated: Yes - My Orders Last 24 Hours: My Active Orders 07/07/19 09:17 Ready for Discharge [RC] PER UNIT ROUTINE - Assessment Assessment:: 23-year-old, now , PPD #1 status post- 36w1d - Plan Plan:: 1. Continue routine orders 2. 3. Continue vistaril for itching/anxiety. Bile acid level returned at 43 4. Anticipate discharge 07/07/2019 Julia Cruz MD
--- NOTE | 2019-07-07 23:51 | PCM.DCSUM1 ---
Discharge Summary - Hospital Course Free Text/Narrative:: 23-year-old PPD#2 status post at 36w1d after IOL for cholestasis of Diagnosis: Stroke: No - Discharge Data Discharge Date: 07/07/19 Discharge Disposition: Home, Self-Care 01 Condition: Good - Referral to Home Health Primary Care Physician: Mita Cruz MD - Discharge Diagnosis/Problem(s) (1) care in third trimester SNOMED Code(s): 804036665, 38467423, 00950418, 150493780, 048778087 ICD Code: Z34.93 - ENCNTR FOR SUPRVSN OF NORMAL PREG, UNSP, THIRD TRIMESTER Status: Acute (2) Cholestasis during in third trimester SNOMED Code(s): 976831936 ICD Code: O26.613 - LIVER AND BILIARY TRACT DISORD IN , THIRD TRIMESTER; K83.1 - OBSTRUCTION OF BILE DUCT Status: Acute (3) (normal spontaneous vaginal delivery) SNOMED Code(s): 36931004, 289616461 ICD Code: O80 - ENCOUNTER FOR FULL-TERM UNCOMPLICATED DELIVERY Status: Acute - Patient Summary/Data Operative Procedure(s) Performed: None Complications: None Consults: Consultations 07/05/19 18:42 Consult to Claims Configuration Analyst [CONS] Routine Labs Pending at D/C: None Recommended Follow-up Testing/Procedures: None Planned Operative Procedure(s) after DC: None Hospital Course: Unremarkable. Please see subjective section. - Patient Instructions Diet: Usual Diet as Tolerated Activity: As Tolerated, No Lifting Over 20 Pounds Driving: May Drive Today Showering/Bathing: May Shower Notify Provider of: Fever, Increased Pain, Swelling and Redness, Drainage, Nausea and/or Vomiting - Discharge Plan *PRESCRIPTION DRUG MONITORING PROGRAM REVIEWED*: Not Applicable *COPY OF PRESCRIPTION DRUG MONITORING REPORT IN PATIENT RANGEL: Not Applicable Home Medications: Home Meds Acetaminophen [Tylenol] 650 mg PO Q4HR PRN 03/20/19 [History] Vits #93/Iron Fum/FA [ Formula Tablet] 1 tab PO DAILY 03/20/19 [History] Docusate Sodium [Colace] 100 mg PO BID PRN cap 07/07/19 [Rx] Ibuprofen [Motrin] 800 mg PO Q8H PRN tablet 07/07/19 [Rx] Patient Handouts: Home Care Instructions for Mom Referrals: Julia Cruz MD [Primary Care Provider] - (6-8 weeks for routine visit or sooner as needed) - Discharge Summary/Plan Comment DC Time >30 min.: No Discharge Summary/Plan Comment: Discharge home today. Discussed and supplementing information. Patient will work with prior to discharge. Will return to clinic in 6 -8 weeks or sooner as needed. Reasons to present to clinic sooner or present to the ED were reviewed with the patient. - General Info Date of Service: 07/07/19 Subjective Update: PPD#2 s/p . Patient is doing well. Cramping has improved overall but does get worse during nursing. Bleeding has decreased more. Patient reports pedal edema is stable. Tolerating a general diet. Ambulating without difficulty. Urinating without significant discomfort. Passing gas. No dizziness, lightheadedness, fever or chills. is going fairly well. Patient was frustrated overnight with feeding but is committed to trying to breastfeed. Baby continues to struggle to latch on one side. Has done some finger feeds and bottle supplementation. Patient does have Specta pump at home. No concerns per patient or per nursing staff. Functional Status: Reports: Pain Controlled, Tolerating Diet, Ambulating, Urinating - Review of Systems General: Reports: Fatigue HEENT: Reports: No Symptoms Pulmonary: Reports: No Symptoms Cardiovascular: Reports: No Symptoms Gastrointestinal: Reports: No Symptoms Genitourinary: Reports: No Symptoms Musculoskeletal: Reports: Back Pain Skin: Reports: No Symptoms Neurological: Reports: No Symptoms Psychiatric: Reports: No Symptoms - Patient Data Vitals - Most Recent: Last Vital Signs Temp 36.9 C 07/07/19 08:00 Pulse 88 07/07/19 08:00 Resp 16 07/07/19 08:00 BP 120/80 07/07/19 08:00 Pulse Ox 98 07/07/19 08:00 Weight - Most Recent: 88.451 kg Med Orders - Current: Current Medications Discontinued Medications Acetaminophen (Tylenol) 650 mg PO Q4H PRN PRN Reason: Pain (Mild 1-3) and fever Last Admin: 07/07/19 04:32 Dose: 650 mg Benzocaine/Menthol (Dermoplast Pain Relief Baggs) 0 gm TOP Q4H PRN PRN Reason: Perineal comfort measures Butorphanol Tartrate (Stadol) 0.5 mg IVPUSH Q3H PRN PRN Reason: Pain Butorphanol Tartrate (Stadol) 1 mg IVPUSH Q3H PRN PRN Reason: Pain Calcium Carbonate/Glycine (Tums) 1,000 mg PO Q2HR PRN PRN Reason: Indigestion Calcium Carbonate/Glycine (Tums) 1,000 mg PO Q2H PRN PRN Reason: Indigestion Carboprost Tromethamine (Hemabate Ds) 250 mcg IM ASDIRECTED PRN PRN Reason: HEMORRHAGE Docusate Sodium (Colace) 100 mg PO BID PRN PRN Reason: Constipation Last Admin: 07/06/19 20:39 Dose: 100 mg Epinephrine HCl (Adrenalin) Confirm Administered Dose 1 mg .ROUTE .STK-MED ONE Stop: 07/05/19 13:32 Last Admin: 07/05/19 15:03 Dose: Not Given Fentanyl (Sublimaze) 100 mcg IVPUSH Q1H PRN PRN Reason: Pain (moderate 4-6) Fentanyl (Sublimaze) Confirm Administered Dose 100 mcg .ROUTE .STK-MED ONE Stop: 07/05/19 13:32 Last Admin: 07/05/19 15:03 Dose: Not Given Fentanyl (Sublimaze) 20 mcg ITHECAL .STK-MED ONE Stop: 07/07/19 11:59 Hydroxyzine HCl (Atarax) 100 mg PO ONETIME ONE Stop: 07/05/19 01:06 Last Admin: 07/05/19 01:17 Dose: 100 mg Hydroxyzine HCl (Atarax) 50 mg PO TID PRN PRN Reason: Anxiety Last Admin: 07/05/19 22:54 Dose: 50 mg Lactated Ringer's (Ringers, Lactated) 1,000 mls @ 999 mls/hr IV BOLUS ONE Stop: 07/05/19 01:25 Last Admin: 07/06/19 03:34 Dose: Not Given Lactated Ringer's (Ringers, Lactated) 1,000 mls @ 125 mls/hr IV ASDIRECTED JOSLYN Last Admin: 07/05/19 14:25 Dose: 125 mls/hr Tranexamic Acid 1,000 mg/ (Sodium Chloride) 110 mls @ 660 mls/hr IV ONETIME PRN PRN Reason: Bleeding Oxytocin/Sodium Chloride (Pitocin In Ns 30 Unit/500 Ml) 30 unit in 500 mls @ 2 mls/hr IV TITRATE JOSLYN; Protocol Last Titration: 07/05/19 20:55 Dose: 0 munits/min, 0 mls/hr Ibuprofen (Motrin) 800 mg PO Q8H PRN PRN Reason: Mild Pain or Fever Last Admin: 07/07/19 04:32 Dose: 800 mg Lidocaine HCl (Xylocaine-Mpf 1%) 30 ml INJECT ASDIRECTED PRN PRN Reason: Perineal Repair Methylergonovine Maleate (Methergine) 0.2 mg IM ASDIRECTED PRN PRN Reason: Hemorrhage Misoprostol (Cytotec) 800 mcg RECTAL ASDIRECTED PRN PRN Reason: Hemorrhage Misoprostol (Cytotec) 25 mcg VAG Q4H PRN PRN Reason: cervical ripening Last Admin: 07/05/19 09:59 Dose: 25 mcg Ondansetron HCl (Zofran) 4 mg IVPUSH Q4H PRN PRN Reason: Nausea/Vomiting Last Admin: 07/05/19 13:50 Dose: 4 mg Oxytocin (Pitocin) 10 unit IM ONETIME PRN PRN Reason: Bleeding Prenat Multivit/Loup/Iron/Folic Ac ( Plus Iron) 1 each PO DAILY [facility] Last Admin: 07/07/19 17:27 Dose: Not Given Simethicone (Simethicone) 80 mg PO Q4H PRN PRN Reason: Gas Sodium Chloride (Saline Flush) 10 ml FLUSH ASDIRECTED PRN PRN Reason: Keep Vein Open Last Admin: 07/05/19 13:00 Dose: 10 ml Sufentanil Citrate (Sufenta) Confirm Administered Dose 50 mcg .ROUTE .STK-MED ONE Stop: 07/05/19 13:33 Last Admin: 07/05/19 15:03 Dose: Not Given Sufentanil Citrate (Sufenta) 20 mcg ITHECAL .STK-MED ONE Stop: 07/07/19 11:59 - Exam General: Reports: Alert, Oriented Lungs: Reports: Clear to Auscultation, Normal Respiratory Effort Cardiovascular: Reports: Regular Rate, Regular Rhythm, No Murmurs GI/Abdominal Exam: Soft, Non-Tender Extremities: Pedal Edema (Trace bilaterally--improved from yesterday) Skin: Reports: Warm, Dry, Intact Psy/Mental Status: Reports: Alert, Normal Affect, Normal Mood
== END 2019-07-07 12:15 | disposition home or self-care (01) | DRG 805 ==
LOC: DL.OB 00:12 → UNDOADMOB 00:12 → DL.OB 00:25 → INTOOBSV 00:25 → OBSVTOIN 00:25 → DL.OB 18:18 → OBSVTOIN 18:18
PROVIDERS: ADMIT Family Medicine; ATTEND Family Medicine
PROC: 10E0XZZ Delivery of Products of Conception, External Approach (ICD-10-PCS; principal; 2019-07-05)
PROC: 10907ZC Drainage of Amniotic Fluid, Therapeutic from Products of Conception, Via Natural or Artificial Opening (ICD-10-PCS; 2019-07-05)
PROC: 3E0R3BZ Introduction of Anesthetic Agent into Spinal Canal, Percutaneous Approach (ICD-10-PCS; 2019-07-05)
PROC: 00HU33Z Insertion of Infusion Device into Spinal Canal, Percutaneous Approach (ICD-10-PCS; 2019-07-05)
DX: O26.62 Liver and biliary tract disorders in childbirth (principal); K83.1 Obstruction of bile duct; Z37.0 Single live birth; Z3A.36 36 weeks gestation of pregnancy; Z28.82 Immunization not carried out because of caregiver refusal
CPT/HCPCS: 36415; 59409; 85027; A9270-GY; J2405; J2590; J3010; J7120

== ENCOUNTER 2022-10-25 20:24 | Emergency (ER) | payer OTHER ==
[2022-10-25] MEDS ORDERED: Ibuprofen 800 MG Tab PO ONE (20:55)
[2022-10-25 22:28] VITALS: BP 93/63; PULSE 73
== END 2022-10-25 22:05 | disposition home or self-care (01) ==
LOC: DL.ED 20:24
DX: S90.121A Contusion of right lesser toe(s) without damage to nail, initial encounter (principal); Z88.8 Allergy status to other drugs, medicaments and biological substances; Z88.0 Allergy status to penicillin; W20.8XXA Other cause of strike by thrown, projected or falling object, initial encounter
CPT/HCPCS: 73630-RT; 99283; A9270-GY

== ENCOUNTER 2023-01-31 11:35 | Emergency (ER) | payer OTHER ==
[2023-01-31 12:02] VITALS: BP 130/70; PULSE 81
[2023-01-31] MEDS ORDERED: Dexamethasone 4 MG/ML SDV IM ONE (12:05)
== END 2023-01-31 12:43 | disposition home or self-care (01) ==
LOC: DL.ED 11:35
DX: R07.81 Pleurodynia (principal); Z88.0 Allergy status to penicillin; Z88.8 Allergy status to other drugs, medicaments and biological substances
CPT/HCPCS: 96372; 99282; 99283; J1100

== ENCOUNTER 2023-09-24 17:24 | Emergency (ER) | payer BC, OTHER ==
[2023-09-24 18:01] VITALS: BP 132/79; PULSE 87
[2023-09-24] MEDS: Ketorolac 30 MG/ML SDV IVPUSH ONE (18:12)
== END 2023-09-24 18:45 | disposition home or self-care (01) ==
LOC: DL.ED 17:24
DX: M25.561 Pain in right knee (principal); M25.461 Effusion, right knee; Z88.0 Allergy status to penicillin; Z88.8 Allergy status to other drugs, medicaments and biological substances; Z91.041 Radiographic dye allergy status; Z79.899 Other long term (current) drug therapy
CPT/HCPCS: 73562-RT; 96374; 99282; 99284-25; J1885

== ENCOUNTER 2024-02-07 20:08 | Emergency (ER) | payer BC ==
[2024-02-07 20:47] VITALS: BP 130/79; PULSE 84
[2024-02-07] MEDS: oxyCODONE 5 MG Tab PO ONE (21:19)
[2024-02-07] MEDS: Take Home: Acetaminophen/HYDROcodone 325-5 MG, 5 Tab Pack PO ONE (21:19)
== END 2024-02-07 21:37 | disposition home or self-care (01) ==
LOC: DL.ED 20:08
DX: S43.402A Unspecified sprain of left shoulder joint, initial encounter (principal); S63.92XA Sprain of unspecified part of left wrist and hand, initial encounter; Z88.0 Allergy status to penicillin; Z91.041 Radiographic dye allergy status; Z88.8 Allergy status to other drugs, medicaments and biological substances; Z79.899 Other long term (current) drug therapy; V86.56XA Driver of dirt bike or motor/cross bike injured in nontraffic accident, initial encounter
CPT/HCPCS: 71045; 73030-LT; 73110-LT; 99282; 99284; A9270-GY